=== PATIENT | male | born 1970 | race Hispanic/Latino ===

== ENCOUNTER → 2022-07-17 | Outpatient (CLI) | payer OTHER | END | disposition home or self-care (01) | LOC: RAH 12:45 → EEVIPCON 12:45 → EDBD 12:45 | PROVIDERS: ATTEND Family Medicine | DX: R91.1 Solitary pulmonary nodule (principal); Z11.1 Encounter for screening for respiratory tuberculosis | CPT/HCPCS: 71250 ==